=== PATIENT | male | born 1985 | race Two or more races ===

== ENCOUNTER 2017-05-27 12:28 | Emergency (ER) | payer OTHER ==
[2017-05-27 12:33] VITALS: TEMP 98.2
--- NOTE | 2017-05-27 12:59 | EDPHY ---
H & P Time Seen by Provider: 05/27/17 12:55 HPI/ROS: CHIEF COMPLAINT: Headache, nausea, vomiting HISTORY OF PRESENT ILLNESS: The patient is a 31 y/o male complaining of a frontal headache while driving 1.5 hours ago. He stopped consuming caffeine on Thursday, 3 days ago. He was driving today when he had the gradual onset of a throbbing DÍAZ. later, he developed nausea, sweating, and photophobia. He has vomited multiple times since the headache started. The headache is currently a 7/10. He denies a history of frequent headaches or migraine headaches. Denies head or neck trauma. Denies vision changes, paresthesias, or fever. No family history of migraine headaches, cancer, or aneurysm. REVIEW OF SYSTEMS: Aside from elements discussed in the HPI, a comprehensive 10-point review of systems was reviewed and is negative. 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 Smoking Status: Never smoked Physical Exam: General Appearance: Lying in a dark room, alert, pleasant Eyes: Pupils equal and reactive, 3 mm, no conjunctival pallor or injection ENT, Mouth: Mucous membranes moist Neck: Normal inspection, supple, no adenopathy Respiratory: Lungs are clear to auscultation Cardiovascular: Regular rate and rhythm Gastrointestinal: Abdomen is soft and non-tender Neurological: Alert, oriented x3, cranial nerves II through XII intact, motor 5/ 5, sensory intact to light touch, gait not assessed Skin: Warm and dry, no rash Extremities: Nontender, no pedal edema Psychiatric: Mood and affect normal Constitutional: Initial Vital Signs Temperature (C) 36.8 C 05/27/17 12:30 Heart Rate 65 05/27/17 12:30 Respiratory Rate 20 05/27/17 12:30 Blood Pressure 119/87 H 05/27/17 12:30 O2 Sat (%) 95 05/27/17 12:30 O2 Delivery Mode Room Air Allergies/Adverse Reactions: No Known Allergies Allergy (Unverified 05/27/17 12:30) Home Medications: Medication Instructions Recorded NK [No Known Home Meds] 05/27/17 Medical Decision Making ED Course/Re-evaluation: The patient is a 31 y/o male presenting with gradual onset a frontal headache associated with photophobia and vomiting, onset 1.5 hours ago. Reglan, Benadryl and Decadron IV given. I suspect that his headache is secondary to stopping caffeine. This is not a thunderclap headache and I do not suspect subarachnoid hemorrhage. In addition he has not been ill and I do not suspect meningitis. 1355: Reassessed patient, he is currently sleeping. 1515: Patient is still having Headache while sitting up. 15mg IV Toradol and 1L IV NS administered. 1620: Reassessed patient and discussed laboratory results; he is feeling much better and would like to go home. I have referred him to an outpatient follow up visit with his PCP. Return precautions provided; patient is comfortable with this plan. Differential Diagnosis: Headache including but not limited to subarachnoid hemorrhage, migraine headache , tension headache and infectious causes such as meningitis, pharyngitis and sinusitis. - Data Points Laboratory Results: Laboratory Results 05/27/17 13:10 05/27/17 13:10 05/27/17 05/27/17 13:10 13:10 WBC 14.43 10^3/uL H 10^3/uL (3.80-9.50) RBC 5.68 10^6/uL 10^6/uL (4.40-6.38) Hgb 18.2 g/dL H g/dL (13.7-17.5) Hct 48.8 % % (40.0-51.0) MCV 85.9 fL fL (81.5-99.8) MCH 32.0 pg pg (27.9-34.1) MCHC 37.3 g/dL H g/dL (32.4-36.7) RDW 12.1 % % (11.5-15.2) Plt Count 272 10^3/uL 10^3/uL (150-400) MPV 9.4 fL fL (8.7-11.7) Neut % (Auto) 84.9 % H % (39.3-74.2) Lymph % (Auto) 10.0 % L % (15.0-45.0) [place] % (Auto) 4.1 % L % (4.5-13.0) Eos % (Auto) 0.1 % L % (0.6-7.6) Baso % (Auto) 0.3 % % (0.3-1.7) Nucleat RBC Rel Count 0.0 % % (0.0-0.2) Absolute Neuts (auto) 12.24 10^3/uL H 10^3/uL (1.70-6.50) Absolute Lymphs (auto) 1.45 10^3/uL 10^3/uL (1.00-3.00) Absolute Monos (auto) 0.59 10^3/uL 10^3/uL (0.30-0.80) Absolute Eos (auto) 0.02 10^3/uL L 10^3/uL (0.03-0.40) Absolute Basos (auto) 0.05 10^3/uL 10^3/uL (0.02-0.10) Absolute Nucleated RBC 0.00 10^3/uL 10^3/uL (0-0.01) Immature Gran % 0.6 % % (0.0-1.1) Immature Gran # 0.08 10^3/uL 10^3/uL (0.00-0.10) Sodium 137 mEq/L mEq/L (134-144) Potassium 3.8 mEq/L mEq/L (3.5-5.2) Chloride 99 mEq/L mEq/L (97-110) Carbon Dioxide 22 mEq/l mEq/l (22-31) Anion Gap 16 mEq/L mEq/L (8-16) BUN 11 mg/dL mg/dL (7-23) Creatinine 0.8 mg/dL mg/dL (0.7-1.3) Estimated GFR > 60 Glucose 108 mg/dL H mg/dL (70-100) Calcium 9.8 mg/dL mg/dL (8.5-10.4) Medications Given: Discontinued Medications Dexamethasone (Decadron Injection) 10 mg IVP EDNOW ONE Stop: 05/27/17 13:10 Last Admin: 05/27/17 13:18 Dose: 10 mg Diphenhydramine HCl (Benadryl Injection) 25 mg IVP EDNOW ONE Stop: 05/27/17 13:10 Last Admin: 05/27/17 13:19 Dose: 25 mg Sodium Chloride (Ns) 1,000 mls @ 0 mls/hr IV ONCE ONE; Wide Open PRN Reason: Protocol Stop: 05/27/17 13:10 Last Admin: 05/27/17 13:18 Dose: 1,000 mls Sodium Chloride (Ns) 1,000 mls @ 0 mls/hr IV ONCE ONE; Wide Open PRN Reason: Protocol Stop: 05/27/17 15:19 Last Admin: 05/27/17 15:21 Dose: 1,000 mls Ketorolac Tromethamine (Toradol) 15 mg IVP EDNOW ONE Stop: 05/27/17 15:18 Last Admin: 05/27/17 15:21 Dose: 15 mg Metoclopramide HCl (Reglan Injection) 10 mg IVP EDNOW ONE Stop: 05/27/17 13:10 Last Admin: 05/27/17 13:18 Dose: 10 mg Departure - Departure Disposition: Home, Routine, Self-Care Clinical Impression: Migraine headache Qualifiers: Migraine type: unspecified Status migrainosus presence: without status migrainosus Intractability: not intractable Qualified Code(s): G43.909 - Migraine, unspecified, not intractable, without status migrainosus Condition: Good Instructions: Migraine Headache (ED), Acute Headache (ED) Additional Instructions: 1. Follow-up with your primary care physician within 72 hours. 2. Return to the emergency department immediately for recurrence of headache, nausea, vomiting, numbness, weakness, neck pain, fever or other concerns. 3. Use Tylenol and/or ibuprofen as directed. Referrals: [facility],. [Clinic] - As per Instructions Report Scribed for: Oriana Conroy Report Scribed by: Annabel Alvarez Date of Report: 05/27/17 Time of Report: 12:59 Physician Review and Approval Statement: 05/27/17 12:59 Portions of this note were transcribed by a medical staff services manager. I personally performed a history, physical exam, medical decision making, and confirmed accuracy of information the transcribed note.
[2017-05-27] MEDS ORDERED: NS 1,000 ML IV ONE ×2 (13:09→15:18)
[2017-05-27] MEDS ORDERED: DEXAMETHASONE 10 MG/ML VIAL IVP ONE (13:09)
[2017-05-27] MEDS ORDERED: METOCLOPRAMIDE 10 MG/2 ML VIAL IVP ONE (13:09)
[2017-05-27 13:29] LABS: % IMMATURE GRANULYOCYTES 0.6 % (0.0-1.1); ABSOLUTE IMMATURE GRANULOCYTES 0.08 10^3/uL (0.00-0.10); ADD DIFF? NO; ADD MORPH? NO; ADD SCAN? NO; ATYPICAL LYMPHOCYTE FLAG 0 (0-99); FRAGMENT RBC FLAG 0 (0-99); HEMATOCRIT 48.8 % (40.0-51.0); HEMOGLOBIN 18.2 g/dL (13.7-17.5); LEFT SHIFT FLG 0 (0-99); LIPEMIA HEMOLYSIS FLAG 90 (0-99); MEAN CELL HEMOGLOBIN CONCENTR. 37.3 g/dL (32.4-36.7); MEAN CELL VOLUME 85.9 fL (81.5-99.8); MEAN PLATELET VOLUME 9.4 fL (8.7-11.7); PLATELET CLUMPS FLAG 0 (0-99); PLATELET COUNT 272 10^3/uL (150-400); RED BLOOD CELL COUNT 5.68 10^6/uL (4.40-6.38); RED CELL DISTRIBUTION WIDTH 12.1 % (11.5-15.2)
[2017-05-27 13:39] LABS: ANION GAP 16 mEq/L (8-16); CALCIUM 9.8 mg/dL (8.5-10.4); CARBON DIOXIDE 22 mEq/l (22-31); CHLORIDE 99 mEq/L (97-110); CREATININE 0.8 mg/dL (0.7-1.3); GLOMERULAR FILTRATION RATE > 60; GLUCOSE 108 mg/dL (70-100); POTASSIUM 3.8 mEq/L (3.5-5.2); SODIUM 137 mEq/L (134-144)
[2017-05-27 14:25] VITALS: RESP 16; O2SAT 96
[2017-05-27] MEDS ORDERED: KETOROLAC 15 MG/1 ML SDV IVP ONE (15:17)
[2017-05-27 16:24] VITALS: BP 114/62; PULSE 77
== END 2017-05-27 16:23 | disposition home or self-care (01) ==
DX: G43.909 Migraine, unspecified, not intractable, without status migrainosus (principal); E86.9 Volume depletion, unspecified
CPT/HCPCS: 96374; J1100; J1200; J1885; J2765